=== PATIENT | female | born 1990 | race Caucasian/White ===

== ENCOUNTER 2019-11-13 16:20 | Outpatient (CLI) | payer OTHER ==
[2019-11-13 17:22] VITALS: BP 120/72; PULSE 81; RESP 16; TEMP 98
--- NOTE | 2019-11-30 07:51 | P.MSEPDOC ---
Presenting Problems - Arrival Data Date of Arrival on Unit: 11/13/19 Time of Arrival on Unit: 16:05 Mode of Transport: Wheelchair - Complaint OB-Reason for Admission/Chief Complaint: Decreased Movement, Pain Comment: pt. to triage with escorts from [facility], pt. reports she started to feel cramping and decreased movement throughout the day Medical History - Information : 3 Para: 2 Term: 2 : 0 Abortions: Spontaneous or Elective: 0 Number of Living Children: 2 - Gestational Age Gestational Age by ANGEL (wks/days): 27 Weeks and 2 Days - History Complications: Hx. Substance Abuse Comment: hx. use of cocaine Review of Systems - Review of Systems Constitutional: No problems Breast: No problems ENT: No problems Cardiovascular: No problems Respiratory: No problems Gastrointestinal: No problems Genitourinary: No problems Musculoskeletal: Muscle weakness Neurological: No problems Skin: No problems Comment: weakness r/t hereditary spastic paraplegia Vital Signs - Temperature Temperature: 98.0 F Temperature Source: Temporal Artery Scan - Pulse Right Sitting Brachial Pulse Rate: 81 Pulse Assessment Method: Auscultation - Respirations Respiratory Rate: 16 Oxygen Delivery Method: Room Air - Blood Pressure Right Arm Sitting Blood Pressure: 120/72 Blood Pressure Mean: 88 Blood Pressure Source: Automatic Cuff Medical Screen Scoring (Pre) - Cervical Exam Dilation: Exam Deferred Effacement: Exam Deferred - Uterine Contractions Frequency: N/A Duration: N/A Intensity: N/A - Maternal Vital Signs Maternal Temperature: N/A Maternal Blood Pressure: N/A Signs of Preeclampsia: N/A Maternal Respirations: N/A - Maternal Trauma Maternal Trauma: N/A - Assessment - Baby A Baseline FHR: 145 - Total Score - Baby A Total Score - Baby A: 0 - Total Score - Baby B Total Score - Baby B: 0 - Total Score - Baby C Total Score - Baby C: 0 - Level of Risk - Baby A Level of Risk - Baby A: Low (0-5) - Level of Risk - Baby B Level of Risk - Baby B: Low (0-5) - Level of Risk - Baby C Level of Risk - Baby C: Low (0-5) Physician Notification (Pre) - Physician Notified Physician Notified Date: 11/13/19 Physician Notified Time: 16:22 New Order Received: Yes - Notification Comment Comment: continue to observe in triage. After evaulation of strip and obervation pt. may be Discharged back to [facility]. Disposition - Disposition OB Disposition: Transfer to other dept./facility Transferred to:: [facility] Discharge Date: 11/13/19 Discharge Time: 16:56 I agree with the RN Medical Screening Exam: No Physician's MSE Comment: insufficient documentation of heart rate tracing Risk & Benefit of care provided described in d/c instruction: No Diagnosis: decreased movement
== END 2019-11-13 16:56 ==
LOC: FBPOP 16:20
PROVIDERS: ATTEND Obstetrics & Gynecology
DX: O36.8120 Decreased fetal movements, second trimester, not applicable or unspecified (principal); Z3A.27 27 weeks gestation of pregnancy
CPT/HCPCS: 99213